=== PATIENT | male | born 1945 | race Caucasian/White ===

== ENCOUNTER 2017-11-04 13:21 | Outpatient (CLI) | payer OTHER, SELFPAY ==
[2017-11-04 14:13] LABS: Abs Immature Grans 0.08 k/cumm (0.0-0.09); Absolute Basophil Count 0.05 k/cumm (0.0-0.2); Absolute Eosinophil Count 0.21 k/cumm (0.0-0.7); Absolute Lymphocyte Count 2.03 k/cumm (1.2-3.4); Absolute Monocyte Count 0.93 k/cumm (0.11-0.7); Absolute Neutrophil Count 5.47 k/cumm (1.2-6.7); Basophils % 0.6; Eosinophils % 2.4; HCT 46.5 % (40.0-50.0); HGB 15.6 g/dL (13.5-17.5); Immature Grans % 0.9; Lymphocytes % 23.1; Mean Corp. HGB Concentration 33.5 g/dL (32.0-36.0); Mean Corpuscular Hemoglobin 30.6 pg (27.0-33.0); Mean Corpuscular Volume 91.4 fL (80-95); Mean Platelet Volume 10.5 fL (8.0-11.0); Monocytes % 10.6; Neutrophils % 62.4; Platelet Count 255 x1000/uL (130-400); RBC 5.09 m/cumm (4.50-6.00); RBC Distribution Width 13.2 % (11.8-14.1); White Blood Cell Count 8.77 k/cumm (4.4-10.8)
[2017-11-04 15:40] LABS: ALT 40 U/L (12-78); AST 23 U/L (15-37); Albumin 4.1 g/dL (3.4-5.0); Alkaline Phosphatase 103 U/L (46-116); Anion Gap 7.6 mmol/L (3-11); BUN 15 mg/dL (7-18); Bilirubin, Total 0.5 mg/dL (0.2-1.0); CO2 32.4 mmol/L (21.0-32.0); CREATININE 1.45 mg/dL (0.70-1.30); Chloride 101 mmol/L (98-107); Estimated GFR 47.84 (mL/min/1.73m2); Glucose 128 mg/dL (70-100); Potassium 4.4 mmol/L (3.5-5.1); Sodium 141 mmol/L (136-145); Total Protein 7.2 g/dL (6.4-8.2)
== END 2017-11-04 13:41 ==
PROVIDERS: PCP Family Medicine; Visit Provider Internal Medicine
DX: M06.00 Rheumatoid arthritis without rheumatoid factor, unspecified site (principal); Z79.899 Other long term (current) drug therapy
CPT/HCPCS: 36415; 80053; 85025

== ENCOUNTER → 2017-11-30 09:14 | Outpatient (BNVA) | payer OTHER, SELFPAY | PROVIDERS: Visit Provider Orthopaedic Surgery | DX: M17.12 Unilateral primary osteoarthritis, left knee (principal) | CPT/HCPCS: 20610; 99211; 99213; J7325 ==

== ENCOUNTER 2017-12-13 08:59 | Outpatient (CLI) | payer OTHER, SELFPAY ==
[2017-12-13 09:39] LABS: Abs Immature Grans 0.02 k/cumm (0.0-0.09); Absolute Basophil Count 0.04 k/cumm (0.0-0.2); Absolute Lymphocyte Count 1.68 k/cumm (1.2-3.4); Absolute Monocyte Count 0.66 k/cumm (0.11-0.7); Absolute Neutrophil Count 4.19 k/cumm (1.2-6.7); Basophils % 0.6; Eosinophils % 2.9; HCT 45.8 % (40.0-50.0); HGB 15.6 g/dL (13.5-17.5); Immature Grans % 0.3; Lymphocytes % 24.7; Mean Corp. HGB Concentration 34.1 g/dL (32.0-36.0); Mean Corpuscular Hemoglobin 31.3 pg (27.0-33.0); Mean Corpuscular Volume 91.8 fL (80-95); Mean Platelet Volume 10.9 fL (8.0-11.0); Monocytes % 9.7; Neutrophils % 61.8; Platelet Count 223 x1000/uL (130-400); RBC 4.99 m/cumm (4.50-6.00); RBC Distribution Width 12.9 % (11.8-14.1); White Blood Cell Count 6.79 k/cumm (4.4-10.8)
[2017-12-13 10:29] LABS: ALT 42 U/L (12-78); AST 23 U/L (15-37); Albumin 3.9 g/dL (3.4-5.0); Alkaline Phosphatase 89 U/L (46-116); Anion Gap 9.2 mmol/L (3-11); BUN 17 mg/dL (7-18); Bilirubin, Total 0.7 mg/dL (0.2-1.0); CO2 28.8 mmol/L (21.0-32.0); CREATININE 1.31 mg/dL (0.70-1.30); Chloride 103 mmol/L (98-107); Estimated GFR 53.79 (mL/min/1.73m2); Glucose 160 mg/dL (70-100); Potassium 4.2 mmol/L (3.5-5.1); Sodium 141 mmol/L (136-145); Total Protein 6.8 g/dL (6.4-8.2)
== END 2017-12-13 09:19 ==
PROVIDERS: PCP Family Medicine; Visit Provider Internal Medicine
DX: M06.00 Rheumatoid arthritis without rheumatoid factor, unspecified site (principal); Z79.899 Other long term (current) drug therapy
CPT/HCPCS: 36415; 80053; 85025

== ENCOUNTER 2018-01-13 01:11 | Outpatient (CLI) | payer OTHER, SELFPAY ==
--- NOTE | 2018-01-13 07:30 | MERGE_ITS ---
*[facility]* *[facility]* [address] [place] [address] Date of study: 01/13/2018 Transthoracic Echocardiography M-mode, complete 2D, complete spectral Doppler, and color Doppler *STUDY CONCLUSIONS* Summary: 1. Left ventricle: The cavity size was normal. Wall thickness was increased in a pattern of moderate LVH. Systolic function was normal. The estimated ejection fraction was 55-60%. Wall motion was normal; there were no regional wall motion abnormalities. 2. Right ventricle: The cavity size was normal. Systolic function was normal. 3. Left atrium: The atrium was moderately dilated. 4. Aortic valve: Trileaflet; moderately thickened, moderately calcified leaflets. Valve mobility was restricted. Transvalvular velocity was increased. There was moderate stenosis. There was mild to moderate regurgitation. Peak velocity (S): 3.4m/sec. VTI ratio of LVOT to aortic valve: 0.31. 5. Mitral valve: Mildly to moderately calcified annulus. Mildly thickened leaflets. There was mild regurgitation. 6. Tricuspid valve: There was moderate regurgitation. 7. Inferior vena cava: The vessel was patent and normal in size. The respirophasic diameter changes were in the normal range (greater than or equal to 50%), consistent with normal central venous pressure. *PATIENT PRESENTATION* Height: 177.8cm ((70in) ) S/D Pressure: 134 / 77 Weight: 95.3kg ((209.6lb) ) BSA: 2.19m^2 Test start time: 07:40 AM. Test stop time: 08:40 AM. PERFORMING Unknown ORDERING Riley Lopez REFERRING Riley Lopez PERFORMING [facility] [employer] Lucy Parker, RT (R)(CT), RDCS *PROCEDURE DATA* Procedure information: The patient was identified by two identifiers. This study was interpreted by [facility]. Pertinent images and digital data are archived for permanent storage and are available for subsequent review. Comparison was made to the study of 01/20/2017. Study status: Routine. Transthoracic echocardiography. M-mode, complete 2D, complete spectral Doppler, and color Doppler. A Transthoracic Echocardiogram was performed. Scanning was performed from the parasternal, apical, subcostal, and suprasternal notch acoustic windows. Images were obtained using an [id number] cardiac ultrasound machine. Image quality was adequate. Study completion: The patient tolerated the procedure well. There were no complications. History: PMH: CAD, HTN, Afib. *CARDIAC ANATOMY* Left ventricle: The cavity size was normal. Wall thickness was increased in a pattern of moderate LVH. Systolic function was normal. The estimated ejection fraction was 55-60%. Wall motion was normal; there were no regional wall motion abnormalities. Findings consistent with diastolic dysfunction. There was no evidence of elevated ventricular filling pressure by Doppler parameters. Aortic valve: Trileaflet; moderately thickened, moderately calcified leaflets. Valve mobility was restricted. Doppler: Transvalvular velocity was increased. There was moderate stenosis. There was mild to moderate regurgitation. VTI ratio of LVOT to aortic valve: 0.31. Valve area (VTI): 1cm^2. Indexed valve area (VTI): 0.4cm^2/m^2. Peak velocity ratio of LVOT to aortic valve: 0.3. Valve area (Vmax): 0.9cm^2. Indexed valve area (Vmax): 0.4cm^2/m^2. Mean velocity ratio of LVOT to aortic valve: 0.33. Valve area (Vmean): 1cm^2. Indexed valve area (Vmean): 0.5cm^2/m^2. Mean gradient (S): 28.5mm Hg. Peak gradient (S): 46.9mm Hg. Aorta: Aortic root: The aortic root was normal in size. Ascending aorta: The ascending aorta was normal in size. Mitral valve: Mildly to moderately calcified annulus. Mildly thickened leaflets. Mobility was not restricted. Doppler: Transvalvular velocity was within the normal range. There was no evidence for stenosis. There was mild regurgitation. Valve area by pressure half-time: 2.4cm^2. Indexed valve area by pressure half-time: 1.1cm^2/m^2. Peak gradient (D): 2.1mm Hg. Left atrium: The atrium was moderately dilated. Right ventricle: The cavity size was normal. Systolic function was normal. Pulmonic valve: Poorly visualized. Doppler: Transvalvular velocity was within the normal range. There was no evidence for stenosis. There was trivial regurgitation. Tricuspid valve: Structurally normal valve. Doppler: Transvalvular velocity was within the normal range. There was no evidence for stenosis. There was moderate regurgitation. Pulmonary artery: Poorly visualized. Pulmonary systolic pressure was in the range of 30mm Hg to 35mm Hg. Right atrium: The atrium was normal in size. Pericardium: There was no pericardial effusion. Systemic veins: Inferior vena cava: The vessel was patent and normal in size. The respirophasic diameter changes were in the normal range (greater than or equal to 50%), consistent with normal central venous pressure. Baseline ECG: Normal sinus rhythm. Measurements Left ventricle Value 01/20/2017 Reference LV ID, ED, PLAX 4.3 cm 4.4 3.5 - 6.0 LV ID, ES, PLAX 3.1 cm 2.9 2.1 - 4.0 LV PW thickness, ED, PLAX 1.2 cm 1.1 LV end-diastolic volume, 81 ml 68 1-p A2C LV ejection fraction, 1-p 52 % 43 A2C LV end-diastolic volume, 97 ml 76 1-p A4C LV ejection fraction, 1-p 60 % 58 A4C LV e', lateral 0.071 m/sec LV E/e', lateral 10 LV e', medial 0.08 m/sec LV E/e', medial 9 LV e', average 0.075 m/sec LV E/e', average 10 Ventricular septum Value 01/20/2017 Reference IVS thickness, ED, PLAX 1.6 cm 1.6 LVOT Value 01/20/2017 Reference LVOT ID, A-P 2.0 cm 2.0 LVOT area 3.1 cm^2 3.2 LVOT peak velocity, S 1.04 m/sec 0.95 LVOT mean velocity, S 0.84 m/sec LVOT VTI, S 24.1 cm 22.5 LVOT peak gradient, S 4.3 mm Hg LVOT mean gradient, S 3 mm Hg 2.3 Stroke volume (SV), LVOT 74 ml DP Stroke index (SV/bsa), 34 ml/m^2 LVOT DP Aortic valve Value 01/20/2017 Reference Aortic valve peak 3.4 m/sec 3.1 velocity, S Aortic valve mean 2.58 m/sec 0.02 velocity, S Aortic valve VTI, S 77.0 cm Aortic mean gradient, S 28.5 mm Hg 21.1 Aortic peak gradient, S 46.9 mm Hg 38.4 VTI ratio, LVOT/AV 0.31 0.32 Aortic valve area, VTI 1 cm^2 1.1 Velocity ratio, peak, 0.3 0.31 LVOT/AV Aortic valve area, peak 0.9 cm^2 1 velocity Velocity ratio, mean, 0.33 LVOT/AV Aortic valve area, mean 1 cm^2 velocity Aortic valve area/bsa, 0.5 cm^2/m^2 mean velocity Aortic regurg deceleration 410 cm/s^2 293 Aortic regurg pressure 346 ms 495 half-time Aorta Value 01/20/2017 Reference Aortic root ID, ED 3.4 cm 3.4 Ascending aorta ID, A-P, S 3.6 cm 3.7 Left atrium Value 01/20/2017 Reference LA ID, A-P, ES 4.0 cm LA ID/bsa, A-P 1.8 cm/m^2 <=2.2 LA area, ES, A4C (H) 25.3 cm^2 20.8 8.8 - 23.4 LA area, ES, A2C 20 cm^2 LA volume/bsa, ES, 1-p A4C 43 ml/m^2 29 LA volume, ES, 2-p 83 ml LA volume/bsa, ES, 2-p 38 ml/m^2 LA/aortic root ratio 1.19 1.27 Mitral valve Value 01/20/2017 Reference Mitral E-wave peak 0.72 m/sec 0.68 velocity Mitral A-wave peak 0.94 m/sec 0.81 velocity Mitral deceleration time (H) 318 ms 281 150 - 230 Mitral pressure half-time 92 ms 82 Mitral peak gradient, D 2.1 mm Hg Mitral E/A ratio, peak 0.77 0.84 Mitral valve area, PHT, DP 2.4 cm^2 2.7 Tricuspid valve Value 01/20/2017 Reference Tricuspid regurg peak 2.8 m/sec 3.1 velocity Tricuspid peak RV-RA 31.1 mm Hg 39.2 gradient Right atrium Value 01/20/2017 Reference RA area, ES, A4C 19.5 cm^2 13.6 8.3 - 19.5 Legend: (L) and (H) wilda values outside specified reference range. I have personally reviewed the images and have reviewed and edited the reported findings. Electronically signed by Riley Lopez 01/13/2018 09:12
== END 2018-01-13 01:31 ==
PROVIDERS: PCP Family Medicine; Visit Provider Internal Medicine Cardiovascular Disease
DX: I25.10 Atherosclerotic heart disease of native coronary artery without angina pectoris (principal); I48.91 Unspecified atrial fibrillation; I35.2 Nonrheumatic aortic (valve) stenosis with insufficiency; I10 Essential (primary) hypertension
CPT/HCPCS: 93306

== ENCOUNTER 2018-04-15 11:57 | Outpatient (CLI) | payer OTHER, SELFPAY ==
[2018-04-15 12:35] LABS: Abs Immature Grans 0.02 k/cumm (0.0-0.09); Absolute Basophil Count 0.04 k/cumm (0.0-0.2); Absolute Eosinophil Count 0.17 k/cumm (0.0-0.7); Absolute Lymphocyte Count 1.75 k/cumm (1.2-3.4); Absolute Monocyte Count 0.84 k/cumm (0.11-0.7); Absolute Neutrophil Count 4.55 k/cumm (1.2-6.7); Basophils % 0.5; Eosinophils % 2.3; HCT 45.2 % (40.0-50.0); HGB 15.3 g/dL (13.5-17.5); Immature Grans % 0.3; Lymphocytes % 23.7; Mean Corp. HGB Concentration 33.8 g/dL (32.0-36.0); Mean Corpuscular Hemoglobin 30.7 pg (27.0-33.0); Mean Corpuscular Volume 90.8 fL (80-95); Mean Platelet Volume 10.6 fL (8.0-11.0); Monocytes % 11.4; Neutrophils % 61.8; Platelet Count 216 x1000/uL (130-400); RBC 4.98 m/cumm (4.50-6.00); RBC Distribution Width 13.2 % (11.8-14.1); White Blood Cell Count 7.37 k/cumm (4.4-10.8)
[2018-04-15 14:06] LABS: ALT 29 U/L (12-78); AST 19 U/L (15-37); Albumin 3.9 g/dL (3.4-5.0); Alkaline Phosphatase 96 U/L (46-116); Anion Gap 5.1 mmol/L (3-11); BUN 23 mg/dL (7-18); Bilirubin, Total 0.6 mg/dL (0.2-1.0); CO2 31.9 mmol/L (21.0-32.0); CREATININE 1.25 mg/dL (0.70-1.30); Calcium 8.9 mg/dL (8.5-10.1); Chloride 105 mmol/L (98-107); Estimated GFR 56.62 (mL/min/1.73m2); Glucose 117 mg/dL (70-100); Potassium 4.4 mmol/L (3.5-5.1); Sodium 142 mmol/L (136-145); Total Protein 6.9 g/dL (6.4-8.2)
== END 2018-04-15 12:17 ==
PROVIDERS: PCP Family Medicine; Visit Provider Internal Medicine
DX: M06.00 Rheumatoid arthritis without rheumatoid factor, unspecified site (principal); Z79.899 Other long term (current) drug therapy
CPT/HCPCS: 36415; 80053; 85025

== ENCOUNTER 2018-05-23 08:06 | Outpatient (CLI) | payer OTHER, SELFPAY ==
[2018-05-23 09:46] LABS: Cholesterol 154 mg/dL (50-200); HDL Cholesterol 43 mg/dL (40-60); LDL CHOLESTEROL 99 mg/dL (<100); Triglyceride 79 mg/dL (30-150)
== END 2018-05-23 08:26 ==
PROVIDERS: PCP Family Medicine; Visit Provider Internal Medicine Cardiovascular Disease
DX: E78.5 Hyperlipidemia, unspecified (principal)
CPT/HCPCS: 36415; 80061; 83721

== ENCOUNTER → 2018-05-31 09:23 | Outpatient (BNVA) | payer OTHER, SELFPAY | PROVIDERS: PCP Family Medicine; Referring Provider Family Medicine; Visit Provider Orthopaedic Surgery | DX: M17.12 Unilateral primary osteoarthritis, left knee (principal); E11.9 Type 2 diabetes mellitus without complications | CPT/HCPCS: 20610; 99211; 99212; J7325 ==

== ENCOUNTER → 2018-06-03 11:32 | Outpatient (BNVA) | payer OTHER, SELFPAY | PROVIDERS: PCP Family Medicine; Visit Provider Internal Medicine Cardiovascular Disease | DX: I25.10 Atherosclerotic heart disease of native coronary artery without angina pectoris (principal); E78.5 Hyperlipidemia, unspecified; I10 Essential (primary) hypertension; I08.2 Rheumatic disorders of both aortic and tricuspid valves; E11.9 Type 2 diabetes mellitus without complications | CPT/HCPCS: 99214 ==